=== PATIENT | male | born 1940 | race Caucasian/White ===

== ENCOUNTER 2025-06-05 14:05 | Emergency (ER) | payer MEDICARE ==
[2025-06-05] MEDS ORDERED: Lidocaine 1% (PF) 30 ML VIAL ONE (14:39)
[2025-06-05] MEDS ORDERED: Bacitracin 1 PK ONE (14:39)
[2025-06-05] MEDS ORDERED: Lidocaine 1% w/Epinephrine 1:100K 20 ML VIAL ONE (14:44)
== END 2025-06-05 15:25 | disposition home or self-care (01) ==
LOC: NAV ERS 14:05
DX: S81.811A Laceration without foreign body, right lower leg, initial encounter (principal); W26.9XXA Contact with unspecified sharp object(s), initial encounter; Z23 Encounter for immunization
CPT/HCPCS: 12002; 90471; 90715; J2003